=== PATIENT | male | born 1955 | race Caucasian/White ===

== ENCOUNTER 2019-08-25 12:03 | Inpatient (IN) | payer SELFPAY | END 2019-08-31 16:13 | disposition home health service (06) | DRG 236 | PROVIDERS: Admitting Provider Thoracic Surgery (Cardiothoracic Vascular Surgery); Family Provider Family Medicine; Visit Provider Thoracic Surgery (Cardiothoracic Vascular Surgery) | DX: I25.10 Atherosclerotic heart disease of native coronary artery without angina pectoris (principal); Z79.82 Long term (current) use of aspirin; I10 Essential (primary) hypertension; M19.90 Unspecified osteoarthritis, unspecified site ==

== ENCOUNTER 2019-09-05 09:54 | Outpatient (CLI) | payer BC, SELFPAY ==
--- NOTE | 2019-09-05 10:03 | XR_ITS ---
WS: [id number] CHEST, 1 view. HISTORY: post op cabg COMPARISON: 08/31/2019 Recent changes of CABG. Moderate elevation of the RIGHT hemidiaphragm similar to the most recent examination. There is no pul monary venous congestion. Small RIGHT pleural effusion is not completely excluded but significantly i mproved since the prior study. LEFT lung is clear. No pneumothorax. Cardiac size: Mildly enlarged cardiac silhouette. Mediastinum/Aorta: Mild atherosclerosis aorta. No osseous abnormality seen. XR/XR chest 1V [id number] IMPRESSION: 1. No pulmonary venous congestion or pneumonia. 2. Elevated RIGHT hemidiaphragm similar to the prior studies. 3. Recent CABG.
== END 2019-09-05 09:55 | disposition home or self-care (01) ==
LOC: RAD 10:03
PROVIDERS: Family Provider Family Medicine; PCP Family Medicine; Visit Provider Thoracic Surgery (Cardiothoracic Vascular Surgery)
DX: Z95.1 Presence of aortocoronary bypass graft (principal)
CPT/HCPCS: 71045

== ENCOUNTER → 2020-06-03 08:48 | Outpatient (BNVA) | payer BC, SELFPAY | PROVIDERS: Family Provider Family Medicine; PCP Family Medicine; Referring Provider Family Medicine; Visit Provider Dermatology | DX: D48.5 Neoplasm of uncertain behavior of skin (principal) | CPT/HCPCS: 88304 ==

== ENCOUNTER → 2021-09-22 08:35 | Outpatient (BNVA) | payer BC, SELFPAY | PROVIDERS: Family Provider Family Medicine; PCP Family Medicine; Visit Provider Internal Medicine Cardiovascular Disease | DX: E11.69 Type 2 diabetes mellitus with other specified complication (principal); E78.5 Hyperlipidemia, unspecified; I25.810 Atherosclerosis of coronary artery bypass graft(s) without angina pectoris | CPT/HCPCS: 80048; 80061; 85025 ==